=== PATIENT | female | born 1990 | race Caucasian/White ===

== ENCOUNTER 2019-08-30 00:20 | Inpatient (IN) | payer BC ==
[2019-08-30] MEDS ORDERED: Methylergonovine 0.2 MG/1 ML Amp IM PRN (01:54)
[2019-08-30] MEDS ORDERED: Sodium Chloride 0.9% 2.5 ML Syringe FLUSH PRN (01:54)
[2019-08-30] MEDS ORDERED: Carboprost Tromethamine 250 MCG/1 ML Amp IM PRN (01:54)
[2019-08-30] MEDS ORDERED: Tranexamic Acid 1,000 MG in Sodium Chloride 0.9% 100 ML IV PRN (01:54)
[2019-08-30] MEDS ORDERED: Butorphanol 1 MG/ML SDV IVPUSH PRN (01:54)
[2019-08-30] MEDS ORDERED: Misoprostol 200 MCG Tab PO PRN (01:54)
[2019-08-30] MEDS ORDERED: Sodium Chloride 0.9% 10 ML Syringe FLUSH PRN (01:54)
[2019-08-30] MEDS ORDERED: Lidocaine 1% 50 ML MDV INJECT PRN (01:54)
[2019-08-30] MEDS ORDERED: Terbutaline 1 MG/ML SDV SUBCUT PRN (01:54)
[2019-08-30] MEDS ORDERED: Water For Irrigation,Sterile 1,000 ML Container IRR PRN (01:54)
[2019-08-30] MEDS ORDERED: Sodium Chloride 0.9% 10 ML SDV IV PRN (01:54)
[2019-08-30] MEDS ORDERED: Oxytocin/0.9 % Sodium Chloride 30 UNIT/500 ML BAG IV SCH ×2 (02:00)
[2019-08-30] MEDS ORDERED: Misoprostol 25 MCG (1/4 of 100 MCG) Tab VAG PRN ×2 (02:30→06:30)
[2019-08-30] MEDS: Lactated Ringers 1,000 ML IV SCH ×3 (06:24→12:12)
--- NOTE | 2019-08-30 07:02 | PCM.PREANE ---
Preanesthetic Assessment - Anesthesia/Transfusion/Family Hx Anesthesia History: Prior Anesthesia Without Reaction Family History of Anesthesia Reaction: No Transfusion History: No Prior Transfusion(s) - Review of Systems General: No Symptoms Pulmonary: No Symptoms Cardiovascular: No Symptoms Gastrointestinal: No Symptoms Neurological: No Symptoms Other: Reports: None - Physical Assessment Height: 5 ft 8 in Weight: 73.482 kg ASA Class: 2 Mental Status: Alert & Oriented x3 Airway Class: Mallampati = 2 Dentition: Reports: Normal Dentition Thyro-Mental Finger Breadths: 3 Mouth Opening Finger Breadths: 3 ROM/Head Extension: Full Lungs: Clear to Auscultation, Normal Respiratory Effort Cardiovascular: Regular Rate, Regular Rhythm - Lab Values: Laboratory Last Values WBC 8.29 K/uL (4.0-11.0) 08/30/19 02:25 RBC 3.58 M/uL (4.30-5.90) L 08/30/19 02:25 Hgb 11.4 g/dL (12.0-16.0) L 08/30/19 02:25 Hct 34.7 % (36.0-46.0) L 08/30/19 02:25 MCV 96.9 fL (80.0-98.0) 08/30/19 02:25 MCH 31.8 pg (27.0-32.0) 08/30/19 02:25 MCHC 32.9 g/dL (31.0-37.0) 08/30/19 02:25 RDW Std Deviation 45.3 fl (28.0-62.0) 08/30/19 02:25 RDW Coeff of Ciaran 13 % (11.0-15.0) 08/30/19 02:25 Plt Count 126 K/uL (150-400) L 08/30/19 02:25 MPV 11.70 fL (7.40-12.00) 08/30/19 02:25 Nucleated RBC % 0.0 /100WBC 08/30/19 02:25 Nucleated RBCs # 0 K/uL 08/30/19 02:25 Blood Type A POSITIVE 08/30/19 02:25 Antibody Screen NEGATIVE 08/30/19 02:25 - Allergies Allergies/Adverse Reactions: Allergies Allergy/AdvReac Type Severity Reaction Status Date / Time No Known Allergies Allergy Verified 11/17/17 13:19 - Acknowledgements Anesthesia Type Planned: Epidural Pt an Appropriate Candidate for the Planned Anesthesia: Yes Alternatives and Risks of Anesthesia Discussed w Pt/Guardian: Yes Pt/Guardian Understands and Agrees with Anesthesia Plan: Yes PreAnesthesia Questionnaire HEENT History: Reports: Other (See Below) (Glasses) Cardiovascular History: Reports: None Respiratory History: Reports: None Gastrointestinal History: Reports: GERD Genitourinary History: Reports: None 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 Para: 0 LMP (Approximate): Musculoskeletal History: Reports: None Neurological History: Reports: None Psychiatric History: Reports: None Endocrine/Metabolic History: Reports: None Hematologic History: Reports: None Immunologic History: Reports: None Oncologic (Cancer) History: Reports: None Dermatologic History: Reports: None - Infectious Disease History Infectious Disease History: Reports: Herpes - HOME MEDS Home Medications: Home Meds Iron 1 tab PO DAILY 08/30/19 [History] Pnv No.95/Ferrous Fum/Folic AC [ Caplet] 1 each PO DAILY 08/30/19 [ History] - CURRENT (IN HOUSE) MEDS Current Meds: Current Medications Butorphanol Tartrate (Stadol) 1 mg IVPUSH Q1H PRN PRN Reason: Pain Last Admin: 08/30/19 06:20 Dose: 1 mg Carboprost Tromethamine (Hemabate Ds) 250 mcg IM ASDIRECTED PRN PRN Reason: Post Hemorrhage Lactated Ringer's (Ringers, Lactated) 1,000 mls @ 150 mls/hr IV ASDIRECTED KYLIE Last Admin: 08/30/19 06:24 Dose: 999 mls/hr Oxytocin/Sodium Chloride (Oxytocin 30 Unit/500 Ml-Ns) 30 unit in 500 mls @ 999 mls/hr IV TITRATE KYLIE Oxytocin/Sodium Chloride (Oxytocin 30 Unit/500 Ml-Ns) 30 unit in 500 mls @ 2 mls/hr IV TITRATE KYLIE; Protocol Tranexamic Acid 1,000 mg/ (Sodium Chloride) 110 mls @ 660 mls/hr IV ONETIME PRN PRN Reason: Bleeding Lidocaine HCl (Xylocaine 1%) 50 ml INJECT ONETIME PRN PRN Reason: Laceration repair Methylergonovine Maleate (Methergine) 0.2 mg IM ASDIRECTED PRN PRN Reason: Post Hemorrhage Misoprostol (Cytotec) 200 mcg PO ONETIME PRN PRN Reason: Post Hemorrhage Misoprostol (Cytotec) 25 mcg VAG ONETIME PRN PRN Reason: Cervical Ripening Last Admin: 08/30/19 02:38 Dose: 25 mcg Misoprostol (Cytotec) 25 mcg VAG Q4H PRN PRN Reason: Cervical Ripening Sodium Chloride (Saline Flush) 10 ml FLUSH ASDIRECTED PRN PRN Reason: Keep Vein Open Sodium Chloride (Saline Flush) 2.5 ml FLUSH ASDIRECTED PRN PRN Reason: Keep Vein Open Sodium Chloride (Normal Saline) 10 ml IV ASDIRECTED PRN PRN Reason: IV Use Sterile Water (Sterile Water For Irrigation) 1,000 ml IRR ASDIRECTED PRN PRN Reason: delivery Terbutaline Sulfate (Brethine) 0.25 mg SUBCUT ASDIRECTED PRN PRN Reason: Tacysystole
[2019-08-30] MEDS ORDERED: Bupivicaine/fentaNYL/NS 250 ML ONE (07:23)
[2019-08-30] MEDS ORDERED: Bupivacaine 0.5% 10 ML SDV ONE ×2 (07:35→07:46)
[2019-08-30] MEDS ORDERED: Ondansetron 4 MG/2 ML SDV IVPUSH PRN (08:42)
[2019-08-30] MEDS ORDERED: Lanolin 100% Cream 7 GM Tube TOP PRN (13:28)
[2019-08-30] MEDS ORDERED: Acetaminophen 500 MG Tab PO PRN ×2 (13:28)
[2019-08-30] MEDS ORDERED: Aluminum Hydroxide/Magnesium Hydroxide/Simethicone Susp 30 ML Cup PO PRN (13:28)
[2019-08-30] MEDS ORDERED: Ibuprofen 400 MG Tab PO PRN (13:28)
[2019-08-30] MEDS ORDERED: Ibuprofen 800 MG Tab PO PRN (13:28)
[2019-08-30] MEDS ORDERED: oxyCODONE 5 MG Tab PO PRN (13:28)
[2019-08-30] MEDS ORDERED: Docusate Sodium 100 MG Cap PO PRN (13:28)
[2019-08-30] MEDS ORDERED: Witch Hazel Medicated Pads 40/Jar TOP PRN (13:28)
[2019-08-30] MEDS ORDERED: Bisacodyl 10 MG Supp RECTAL PRN (13:28)
[2019-08-30] MEDS ORDERED: Hydrocortisone 2.5% Crm 30 GM Tube TOP PRN (13:28)
[2019-08-30] MEDS ORDERED: Benzocaine/Menthol 20%-0.5% Spray 78 GM Cannister TOP PRN (13:28)
--- NOTE | 2019-08-30 13:36 | PCM.OPNOTE ---
- General Post-Op/Procedure Note Date of Surgery/Procedure: 08/30/19 Operative Procedure(s): /2nd mLL repaired, right sulcus laceration repaired Findings: Viable female APGARs 9, 9 weight 7 lb 6 oz Spontaneous delivery intact placenta with a 3 V cord Pre Op Diagnosis: 40/1 week IUP. Induction of labor for past due Post-Op Diagnosis: Same Anesthesia Technique: Epidural Primary Surgeon: Renee Zavala EBL in mLs: 350 Complications: none known Condition: Good Free Text/Narrative:: Dictation [id number]
--- NOTE | 2019-08-30 15:24 | OR ---
SURGEON: Renee Zavala M.D. DATE OF PROCEDURE: 08/30/2019 PREOPERATIVE DIAGNOSIS: A 40-1/7 weeks' intrauterine , induction of labor due to past due . POSTOPERATIVE DIAGNOSIS: A 40-1/7 weeks' intrauterine , induction of labor due to past due . PROCEDURE: Spontaneous vaginal delivery with second-degree midline laceration and right lateral sulcus repaired. PRIMARY SURGEON: Renee Zavala MD ANESTHESIA: Epidural. ESTIMATED BLOOD LOSS: 350 mL. COMPLICATIONS: None known. FINDINGS: Viable female. scores 9 at one minute and 9 at five minutes. Weight of 7 pounds 6 ounces. Spontaneous delivery, intact placenta, 3-vessel cord. DISPOSITION: to nursery, mom in LDRP. PROCEDURE DETAILS: Ciera is a 29-year-old, G1, P0, at 40-1/7 weeks' gestational age who presents for scheduled induction of labor due to past due . Risks of procedure have been discussed. Proper consent obtained. The patient was admitted, routine labs were drawn. IV hydration was initiated. She underwent Cytotec ripening, responded nicely to this. Became increasingly uncomfortable, underwent regional anesthesia in the form of epidural. The following morning at approximately 9 a.m., she was found to be 8 cm. Group B beta strep negative. Therefore, amniotomy was performed. She was on Pitocin. Over the next 3 hours, she had progressed to complete, 100% effaced, +3 station. I was called for delivery. Upon my arrival, the patient was placed in modified dorsal lithotomy position, prepped and draped in the usual aseptic manner. Continued with pushing efforts, was able to push readily to a +4 station. Delivered 's head atraumatically spontaneously, followed by anterior shoulder, posterior shoulder, and remainder of the body without difficulty. The infant's oropharynx and nares were bulb suctioned. was handed off to her mother with attending nursing staff at the side. After a delay, the cord was clamped and cut. Cord arterial, cord venous, cord blood sampling obtained. Light pressure was applied while the placenta was delivered. Vigorous fundal uterine massage was applied while 30 units of Pitocin was delivered in 500 mL of IV fluid. Upon inspection of cervix, vaginal sidewall, and perineum, there was found to be a second-degree midline laceration. This was repaired using 3-0 Vicryl in the usual fashion. There was also a right lateral sulcus laceration. This was repaired using 3-0 Vicryl as well in continuous running locked fashion. The patient tolerated this repair well. Hemostasis appeared evident. Uterus remained firm. Sponge count, instrument count, and needle count were correct. The patient remained in LDRP, to nursery. CLYDE / BEN /[id number] ABDON
--- NOTE | 2019-08-31 10:27 | PCM.PNPP ---
- General Info Date of Service: 08/31/19 Functional Status: Reports: Pain Controlled, Tolerating Diet, Urinating, Other - Review of Systems General: Reports: No Symptoms Pulmonary: Denies: Shortness of Breath Cardiovascular: Denies: Chest Pain, Palpitations, Lightheadedness Gastrointestinal: Denies: Abdominal Pain, Nausea, Vomiting Genitourinary: Denies: Flank Pain Musculoskeletal: Reports: No Symptoms Skin: Reports: No Symptoms Neurological: Reports: No Symptoms Psychiatric: Reports: No Symptoms - General Info Date of Service: 08/31/19 - Patient Data Vital Signs - Most Recent: Last Vital Signs Temp 36.3 C 08/31/19 07:43 Pulse 89 08/31/19 07:43 Resp 18 08/31/19 07:43 BP 124/60 08/31/19 07:43 Pulse Ox 96 08/31/19 07:43 Weight - Most Recent: 73.482 kg Lab Results - Last 24 Hours: Laboratory Results - last 24 hr 08/30/19 08/30/19 08/31/19 Range/Units 12:25 12:25 05:37 Hgb 9.1 L (12.0-16.0) g/dL Hct 27.9 L (36.0-46.0) % Cord ABG pH 7.229 (7.18-7.38) Cord ABG Base Excess -5 (-10--2) Cord VBG pH 7.341 (7.25-7.45) Cord VBG Base Excess -5 (-10--2) Med Orders - Current: Current Medications Acetaminophen (Tylenol Extra Strength) 500 mg PO Q4H PRN PRN Reason: Pain Acetaminophen (Tylenol Extra Strength) 1,000 mg PO Q4H PRN PRN Reason: Pain Al Hydroxide/Mg Hydroxide (Mag-Al Plus) 30 ml PO Q8H PRN PRN Reason: Heartburn Benzocaine/Menthol (Dermoplast Pain Relief 20%-0.5% Meraux) 78 gm TOP ASDIRECTED PRN PRN Reason: Perineal Comfort Measure Last Admin: 08/30/19 17:21 Dose: 1 can Bisacodyl (Dulcolax) 10 mg RECTAL ONETIME PRN PRN Reason: Constipation Carboprost Tromethamine (Hemabate Ds) 250 mcg IM ASDIRECTED PRN PRN Reason: Post Hemorrhage Docusate Sodium (Colace) 100 mg PO BID PRN PRN Reason: Constipation Last Admin: 08/30/19 22:31 Dose: 100 mg Emollient Ointment (Lansinoh Hpa) 0 gm TOP ASDIRECTED PRN PRN Reason: Sore Nipples Hydrocortisone (Proctozone-Hc 2.5% Crm) 1 gm TOP 5XDAY PRN PRN Reason: Itching Lactated Ringer's (Ringers, Lactated) 1,000 mls @ 150 mls/hr IV ASDIRECTED KYLIE Last Admin: 08/30/19 12:12 Dose: 150 mls/hr Oxytocin/Sodium Chloride (Oxytocin 30 Unit/500 Ml-Ns) 30 unit in 500 mls @ 999 mls/hr IV TITRATE [facility] Last Admin: 08/30/19 12:26 Dose: 999 mls/hr Oxytocin/Sodium Chloride (Oxytocin 30 Unit/500 Ml-Ns) 30 unit in 500 mls @ 2 mls/hr IV TITRATE [facility]; Protocol Tranexamic Acid 1,000 mg/ (Sodium Chloride) 110 mls @ 660 mls/hr IV ONETIME PRN PRN Reason: Bleeding Ibuprofen (Motrin) 400 mg PO Q4H PRN PRN Reason: Pain Ibuprofen (Motrin) 800 mg PO Q6H PRN PRN Reason: Pain Methylergonovine Maleate (Methergine) 0.2 mg IM ASDIRECTED PRN PRN Reason: Post Hemorrhage Ondansetron HCl (Zofran) 4 mg IVPUSH Q6H PRN PRN Reason: Nausea/Vomiting Last Admin: 08/30/19 08:51 Dose: 4 mg Oxycodone HCl (Oxycodone) 5 mg PO Q2H PRN PRN Reason: Pain Sodium Chloride (Saline Flush) 10 ml FLUSH ASDIRECTED PRN PRN Reason: Keep Vein Open Sodium Chloride (Saline Flush) 2.5 ml FLUSH ASDIRECTED PRN PRN Reason: Keep Vein Open Sodium Chloride (Normal Saline) 10 ml IV ASDIRECTED PRN PRN Reason: IV Use Sterile Water (Sterile Water For Irrigation) 1,000 ml IRR ASDIRECTED PRN PRN Reason: delivery Last Admin: 08/30/19 12:26 Dose: 1,000 ml Witch Hanh (Tucks) 1 pad TOP ASDIRECTED PRN PRN Reason: comfort care Last Admin: 08/30/19 17:20 Dose: 1 tub Discontinued Medications Bupivacaine HCl (Sensorcaine-Mpf 0.5%) Confirm Administered Dose 10 ml .ROUTE .STK-MED ONE Stop: 08/30/19 07:36 Last Admin: 08/30/19 08:44 Dose: Not Given Bupivacaine HCl (Sensorcaine-Mpf 0.5%) Confirm Administered Dose 10 ml .ROUTE .STK-MED ONE Stop: 08/30/19 07:47 Last Admin: 08/30/19 08:44 Dose: Not Given Butorphanol Tartrate (Stadol) 1 mg IVPUSH Q1H PRN PRN Reason: Pain Last Admin: 08/30/19 06:20 Dose: 1 mg Fentanyl/Bupivacaine HCl (Fentanyl/Bupivacaine/Ns 2 Mcg-0.125% 250 Ml) Confirm Administered Dose 250 mls @ as directed .ROUTE .STK-MED ONE Stop: 08/30/19 07:24 Last Admin: 08/30/19 08:44 Dose: Not Given Lidocaine HCl (Xylocaine 1%) 50 ml INJECT ONETIME PRN PRN Reason: Laceration repair Misoprostol (Cytotec) 200 mcg PO ONETIME PRN PRN Reason: Post Hemorrhage Misoprostol (Cytotec) 25 mcg VAG ONETIME PRN PRN Reason: Cervical Ripening Last Admin: 08/30/19 02:38 Dose: 25 mcg Misoprostol (Cytotec) 25 mcg VAG Q4H PRN PRN Reason: Cervical Ripening Terbutaline Sulfate (Brethine) 0.25 mg SUBCUT ASDIRECTED PRN PRN Reason: Tacysystole - Infant Interaction Support Person: - Recovery Exam Fundal Tone: Firm Fundal Level: At Umbilicus Fundal Placement: Midline Lochia Amount: Scant Lochia Color: Rubra/Red Perineum Description: Other (see below) Other Perinuem Description: 2nd degree tear with repair Episiotomy/Laceration: Not Approximated Bladder Status: Voiding - Exam General: Alert, Oriented Lungs: Normal Respiratory Effort Cardiovascular: Regular Rate, Regular Rhythm GI/Abdominal Exam: Normal Bowel Sounds, Soft Extremities: Pedal Edema (trace). No: Ivy's Sign Skin: Warm, Dry, Intact Neurological: No New Focal Deficit Psy/Mental Status: Alert, Normal Affect, Normal Mood - Problem List & Annotations (1) Vaginal delivery SNOMED Code(s): 657053257 Code(s): O80 - ENCOUNTER FOR FULL-TERM UNCOMPLICATED DELIVERY Status: Acute Current Visit: Yes - Problem List Review Problem List Initiated/Reviewed/Updated: Yes - My Orders Last 24 Hours: My Active Orders 08/30/19 13:28 Patient Status [ADT] Routine May Shower [RC] ASDIRECTED Notify Provider Vital Signs [RC] ASDIRECTED Up ad Love [RC] ASDIRECTED Acetaminophen [Tylenol Extra Strength] 1,000 mg PO Q4H PRN Acetaminophen [Tylenol Extra Strength] 500 mg PO Q4H PRN Alum Hydrox/Mag Hydrox/Simeth [Mag-Al Plus] 30 ml PO Q8H PRN Benzocaine/Menthol [Dermoplast Pain Relief 20%-0.5% Meraux] 78 gm TOP ASDIRECTED PRN Docusate Sodium [Colace] 100 mg PO BID PRN Hydrocortisone [Proctozone-HC 2.5% Crm] 1 gm TOP 5XDAY PRN Ibuprofen [Motrin] 400 mg PO Q4H PRN Ibuprofen [Motrin] 800 mg PO Q6H PRN Lanolin [Lansinoh HPA] See Dose Instructions TOP ASDIRECTED PRN bisacodyL [Dulcolax] 10 mg RECTAL ONETIME PRN oxyCODONE 5 mg PO Q2H PRN witch Hanh [Tucks] 1 pad TOP ASDIRECTED PRN Assess Lochia [WOMSER] Per Unit Routine Assess Uterine Involution [WOMSER] Per Unit Routine Ice Therapy [OM.PC] Per Unit Routine Perineal Care [OM.PC] Per Unit Routine Peripheral IV Discontinue [OM.PC] Routine Sitz Bath [OM.PC] Per Unit Routine 08/30/19 Lunch Regular Diet [DIET] 08/31/19 10:24 Ready for Discharge [RC] PER UNIT ROUTINE - Assessment Assessment:: PPD 1 status post - Plan Plan:: Doing well overall. VS are stable. Would like to go home today. Discharge instructions reviewed. Follow up at [facility] 6 weeks. DIscharge to home.
--- NOTE | 2019-08-31 12:32 | PCM48HPAN ---
Post Anesthesia Note - EVALUATION WITHIN 48HRS OF ANESTHETIC Vital Signs in Normal Range: Yes Patient Participated in Evaluation: Yes Respiratory Function Stable: Yes Airway Patent: Yes Cardiovascular Function Stable: Yes Hydration Status Stable: Yes Pain Control Satisfactory: Yes Nausea and Vomiting Control Satisfactory: Yes Mental Status Recovered: Yes Vital Signs: Last Vital Signs Temp 36.3 C 08/31/19 07:43 Pulse 89 08/31/19 07:43 Resp 18 08/31/19 07:43 BP 124/60 08/31/19 07:43 Pulse Ox 96 08/31/19 07:43
== END 2019-08-31 14:35 | disposition home or self-care (01) | DRG 560 ==
LOC: MW.OBCHECK 00:20 → MW.OB 00:20 → MW.OBCHECK 01:55 → MW.OB 01:55 → OBSVTOIN 12:25 → MW.OB 17:30
PROVIDERS: ADMIT Obstetrics & Gynecology; ATTEND Obstetrics & Gynecology
PROC: 10E0XZZ Delivery of Products of Conception, External Approach (ICD-10-PCS; principal; 2019-08-30)
PROC: 10907ZC Drainage of Amniotic Fluid, Therapeutic from Products of Conception, Via Natural or Artificial Opening (ICD-10-PCS; 2019-08-30)
PROC: 3E0P7VZ Introduction of Hormone into Female Reproductive, Via Natural or Artificial Opening (ICD-10-PCS; 2019-08-30)
PROC: 3E0R3BZ Introduction of Anesthetic Agent into Spinal Canal, Percutaneous Approach (ICD-10-PCS; 2019-08-30)
PROC: 0KQM0ZZ Repair Perineum Muscle, Open Approach (ICD-10-PCS; 2019-08-30)
DX: O48.0 Post-term pregnancy (principal); Z3A.40 40 weeks gestation of pregnancy; Z37.0 Single live birth; Z79.899 Other long term (current) drug therapy; O70.1 Second degree perineal laceration during delivery
CPT/HCPCS: 36415; 51702; 59025; 59409; 82803; 85014; 85018; 85027; 86592; 86593; 86850; 86900; 86901; A9270-GY; J0595; J2405; J2590; J3010; J3490; J7120

== ENCOUNTER 2020-01-10 06:42 | Day surgery (SDC) | payer BC ==
[~2020-01-10 06:42] MED LIST: Lactated Ringers 1,000 ML IV SCH
[2020-01-10] MEDS ORDERED: fentaNYL 100 MCG/2 ML SDV ONE (06:55)
[2020-01-10] MEDS ORDERED: Lidocaine 2% 5 ML SDV ONE (06:55)
[2020-01-10] MEDS ORDERED: Propofol 200 MG/20 ML SDV ONE (06:55)
[2020-01-10] MEDS ORDERED: Midazolam 1 MG/ML 2 ML SDV ONE (06:56)
--- NOTE | 2020-01-10 07:14 | PCM.PREANE ---
Preanesthetic Assessment - Anesthesia/Transfusion/Family Hx Anesthesia History: No Prior Anesthesia Family History of Anesthesia Reaction: No Transfusion History: No Prior Transfusion(s) - Review of Systems General: No Symptoms Pulmonary: No Symptoms Cardiovascular: No Symptoms Gastrointestinal: No Symptoms Neurological: No Symptoms Other: Reports: None - Physical Assessment Vital Signs: Last Vital Signs Temp 97.3 F 01/10/20 07:11 Pulse 51 L 01/10/20 07:11 Resp 16 01/10/20 07:11 BP 111/64 01/10/20 07:11 Pulse Ox 98 01/10/20 07:11 Height: 5 ft 8.5 in Weight: 64.864 kg ASA Class: 1 Mental Status: Alert & Oriented x3 Airway Class: Mallampati = 2 Dentition: Reports: Normal Dentition Thyro-Mental Finger Breadths: 3 Mouth Opening Finger Breadths: 3 ROM/Head Extension: Full Lungs: Clear to Auscultation, Normal Respiratory Effort Cardiovascular: Regular Rate, Regular Rhythm - Lab Values: Laboratory Last Values WBC 4.95 K/uL (4.0-11.0) 01/09/20 11:32 RBC 4.14 M/uL (4.30-5.90) L 01/09/20 11:32 Hgb 12.4 g/dL (12.0-16.0) 01/09/20 11:32 Hct 38.2 % (36.0-46.0) 01/09/20 11:32 MCV 92.3 fL (80.0-98.0) 01/09/20 11:32 MCH 30.0 pg (27.0-32.0) 01/09/20 11:32 MCHC 32.5 g/dL (31.0-37.0) 01/09/20 11:32 RDW Std Deviation 39.4 fl (28.0-62.0) 01/09/20 11:32 RDW Coeff of Ciaran 12 % (11.0-15.0) 01/09/20 11:32 Plt Count 282 K/uL (150-400) 01/09/20 11:32 MPV 9.20 fL (7.40-12.00) 01/09/20 11:32 Nucleated RBC % 0.0 /100WBC 01/09/20 11:32 Nucleated RBCs # 0 K/uL 01/09/20 11:32 HCG, Qual NEGATIVE (NEG) 01/09/20 11:32 - Allergies Allergies/Adverse Reactions: Allergies Allergy/AdvReac Type Severity Reaction Status Date / Time No Known Allergies Allergy Verified 01/10/20 07:09 - Acknowledgements Anesthesia Type Planned: MAC Pt an Appropriate Candidate for the Planned Anesthesia: Yes Alternatives and Risks of Anesthesia Discussed w Pt/Guardian: Yes Pt/Guardian Understands and Agrees with Anesthesia Plan: Yes PreAnesthesia Questionnaire - Past Health History Medical/Surgical History: Denies Medical/Surgical History HEENT History: Reports: Other (See Below) Cardiovascular History: Reports: None Respiratory History: Reports: None Gastrointestinal History: Reports: GERD Genitourinary History: Reports: None 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: recently finished antibiotic for mastitis, currently breast feeding Musculoskeletal History: Reports: Back Pain, Chronic Other Musculoskeletal History: intermittent back pain Neurological History: Reports: None Psychiatric History: Reports: None Endocrine/Metabolic History: Reports: None Hematologic History: Reports: None Immunologic History: Reports: None Oncologic (Cancer) History: Reports: None Dermatologic History: Reports: None - Infectious Disease History Infectious Disease History: Reports: Herpes - Past Surgical History Head Surgeries/Procedures: Reports: None Female Surgical History: Endocrine Surgical History: Reports: None Neurological Surgical History: Reports: None Musculoskeletal Surgical History: Reports: Other (See Below) 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 Dermatological Surgical History: Reports: None - SUBSTANCE USE Smoking Status *Q: Never Smoker - HOME MEDS Home Medications: Home Meds . [No Known Home Meds] 01/04/20 [History] - CURRENT (IN HOUSE) MEDS Current Meds: Current Medications Lactated Ringer's (Ringers, Lactated) 1,000 mls @ 125 mls/hr IV ASDIRECTED KYLIE Last Admin: 01/10/20 07:09 Dose: 125 mls/hr Documented by: Discontinued Medications Fentanyl (Sublimaze) Confirm Administered Dose 100 mcg .ROUTE .STK-MED ONE Stop: 01/10/20 06:56 Lidocaine (Xylocaine-Mpf 2%) Confirm Administered Dose 5 ml .ROUTE .STK-MED ONE Stop: 01/10/20 06:56 Midazolam HCl (Versed 1 Mg/Ml) Confirm Administered Dose 2 mg .ROUTE .STK-MED ONE Stop: 01/10/20 06:57 Propofol (Diprivan 20 Ml) Confirm Administered Dose 400 mg .ROUTE .STK-MED ONE Stop: 01/10/20 06:56
[2020-01-10] MEDS ORDERED: Glycopyrrolate 0.2 MG/ML SDV ONE (07:52)
[2020-01-10] MEDS ORDERED: Atropine 0.1 MG/ML 10 ML Syringe IVPUSH PRN ×2 (08:24)
[2020-01-10] MEDS ORDERED: Albuterol 0.083% 2.5 MG/3 ML Neb Soln NEB PRN (08:24)
[2020-01-10] MEDS ORDERED: 50% Dextrose in Water 50 ML Syringe IVPUSH PRN (08:24)
[2020-01-10] MEDS ORDERED: Naloxone 0.4 MG/ML Syringe IVPUSH PRN (08:24)
[2020-01-10] MEDS ORDERED: fentaNYL 100 MCG/2 ML SDV IVPUSH PRN (08:24)
[2020-01-10] MEDS ORDERED: EPINEPHrine 1:10,000 1 MG/10 ML Syringe IVPUSH PRN (08:24)
--- NOTE | 2020-01-10 08:31 | PCM.OPNOTE ---
- General Post-Op/Procedure Note Date of Surgery/Procedure: 01/10/20 Operative Procedure(s): LEEP of cervix Findings: BRIAN III--biopsy proven Pre Op Diagnosis: BRIAN III Post-Op Diagnosis: Same Anesthesia Technique: Local, MAC Primary Surgeon: Renee Zavala Cavity Pump Operator: Arti Cain (MS IV) Fluid Replacement, Intraop: 1,000 EBL in mLs: 20 Complications: none known Condition: Stable Free Text/Narrative:: Dictation [id number]
--- NOTE | 2020-01-10 08:40 | PCM.POSTAN ---
POST ANESTHESIA ASSESSMENT - MENTAL STATUS Mental Status: Alert, Oriented - VITAL SIGNS Vital Signs: Last Vital Signs Temp 97.3 F 01/10/20 07:11 Pulse 72 01/10/20 08:37 Resp 9 L 01/10/20 08:37 BP 92/46 L 01/10/20 08:37 Pulse Ox 97 01/10/20 08:37 - RESPIRATORY Respiratory Status: Respiratory Rate WNL, Airway Patent, O2 Saturation Stable - CARDIOVASCULAR CV Status: Pulse Rate WNL, Blood Pressure Stable - GASTROINTESTINAL GI Status: No Symptoms - PAIN Pain Score: 0 - POST OP HYDRATION Hydration Status: Adequate & Stable
--- NOTE | 2020-01-10 10:57 | PCM48HPAN ---
Post Anesthesia Note - EVALUATION WITHIN 48HRS OF ANESTHETIC Vital Signs in Normal Range: Yes Patient Participated in Evaluation: Yes Respiratory Function Stable: Yes Airway Patent: Yes Cardiovascular Function Stable: Yes Hydration Status Stable: Yes Pain Control Satisfactory: Yes Nausea and Vomiting Control Satisfactory: Yes Mental Status Recovered: Yes Vital Signs: Last Vital Signs Temp 96.6 F L 01/10/20 08:45 Pulse 51 L 01/10/20 09:30 Resp 15 01/10/20 09:30 BP 107/66 01/10/20 09:30 Pulse Ox 99 01/10/20 09:30 - COMMENTS/OBSERVATIONS Free Text/Narrative:: discharged at 1005
--- NOTE | 2020-01-10 14:05 | OR ---
SURGEON: Renee Zavala M.D. DATE OF PROCEDURE: 01/10/2020 PREOPERATIVE DIAGNOSIS: Cervical intraepithelial neoplasia 3. POSTOPERATIVE DIAGNOSIS: Cervical intraepithelial neoplasia 3. PROCEDURE: Loop electrosurgical excision procedure of cervix. PRIMARY SURGEON: Renee Zavala M.D. WATER [employer] SUPERVISOR: BHUPENDRA Souza. ANESTHESIA: MAC with local. ESTIMATED BLOOD LOSS: 20 mL. FLUIDS: 1000 mL of crystalloid. DISPOSITION: The patient to PACU, stable. PROCEDURE IN DETAIL: Ciera is a 29-year-old G1, P1, who is approximately 3 months , who presents for a scheduled LEEP procedure given biopsy-proven BRIAN 3 on colposcopy. Risks of procedure were discussed and proper consent obtained. The patient was taken to the operating room, where she underwent MAC anesthetic, was placed in modified dorsal lithotomy position, was prepped and draped under usual aseptic technique. A time-out was performed. A speculum was introduced in the vagina as well as sidewall retractors. A cervical block was performed using 1% lidocaine with epinephrine. Please see nurse's notes for total amount dispensed of local. Using a 20 x 8 mm loop, the posterior lip was now excised followed by anterior lip, and a 5 mm endocervical hat. Endocervical curettings were also obtained. The base of the wound bed was now cauterized as well as the peripheral edges. Monsel's was placed. The endocervical os was once again cannulized. Hemostasis appeared evident. All instruments were removed from the vagina. Sponge, instrument, and needle count was correct x2. The patient will go to PACU in stable condition. CLYDE / BEN /[id number]
== END 2020-01-10 10:07 | disposition home or self-care (01) ==
LOC: MW.SDS 06:42
PROVIDERS: ATTEND Obstetrics & Gynecology
DX: D06.0 Carcinoma in situ of endocervix (principal); K21.9 Gastro-esophageal reflux disease without esophagitis; Z79.899 Other long term (current) drug therapy
CPT/HCPCS: 36415; 57461; 84703; 85027; J2001; J2250; J2704; J3490; J7120; 00940; 88305; 88307; J3010

== ENCOUNTER 2022-01-30 04:53 | Inpatient (IN) | payer BC ==
[2022-01-30] MEDS ORDERED: Carboprost Tromethamine 250 MCG/1 ML Amp IM PRN (04:59)
[2022-01-30] MEDS ORDERED: Sodium Chloride 0.9% 10 ML Syringe FLUSH PRN (04:59)
[2022-01-30] MEDS ORDERED: Sodium Chloride 0.9% 2.5 ML Syringe FLUSH PRN (04:59)
[2022-01-30] MEDS ORDERED: Lidocaine 1% 50 ML MDV INJECT PRN (04:59)
[2022-01-30] MEDS ORDERED: Tranexamic Acid 1,000 MG in Sodium Chloride 0.9% 100 ML IV PRN (04:59)
[2022-01-30] MEDS ORDERED: Sodium Chloride 0.9% 20 ML SDV IV PRN (04:59)
[2022-01-30] MEDS ORDERED: Ondansetron 4 MG/2 ML SDV IVPUSH PRN (04:59)
[2022-01-30] MEDS ORDERED: Water For Irrigation,Sterile 1,000 ML Container IRR PRN (04:59)
[2022-01-30] MEDS ORDERED: Methylergonovine 0.2 MG/1 ML Amp IM PRN (04:59)
[2022-01-30] MEDS ORDERED: Terbutaline 1 MG/ML SDV SUBCUT PRN (04:59)
[2022-01-30] MEDS ORDERED: Misoprostol 200 MCG Tab PO PRN (04:59)
[2022-01-30] MEDS ORDERED: Butorphanol 1 MG/ML SDV IVPUSH PRN (04:59)
[2022-01-30] MEDS ORDERED: Oxytocin/0.9 % Sodium Chloride 30 UNIT/500 ML BAG IV SCH ×2 (05:00)
[2022-01-30] MEDS: Lactated Ringers 1,000 ML IV SCH ×2 (06:22→11:54)
[2022-01-30] MEDS ORDERED: Ropivacaine/PF 400 MG/200 ML PCA ONE (11:52)
[2022-01-30] MEDS ORDERED: ePHEDrine 50 MG/ML SDV IVPUSH PRN ×2 (12:49)
[2022-01-30] MEDS ORDERED: Ropivacaine HCl/PF 400 MG in Premix Bag 1 BAG EPIDUR SCH (13:00)
[2022-01-30] MEDS ORDERED: Phenylephrine HCl In 0.9% NaCl 1 MG/10 ML Vial IVPUSH SCH (13:00)
[2022-01-30] MEDS ORDERED: Ibuprofen 400 MG Tab PO PRN (14:35)
[2022-01-30] MEDS ORDERED: Lanolin 100% Cream 7 GM Tube TOP PRN (14:35)
[2022-01-30] MEDS ORDERED: oxyCODONE 5 MG Tab PO PRN (14:35)
[2022-01-30] MEDS ORDERED: Acetaminophen 500 MG Tab PO PRN ×2 (14:35)
[2022-01-30] MEDS ORDERED: Ibuprofen 800 MG Tab PO PRN (14:35)
[2022-01-30] MEDS ORDERED: Bisacodyl 10 MG Supp RECTAL PRN (14:35)
[2022-01-30] MEDS ORDERED: Benzocaine/Menthol 20%-0.5% Spray 78 GM Cannister TOP PRN (14:35)
[2022-01-30] MEDS ORDERED: Witch Hazel Medicated Pads 40/Jar TOP PRN (14:35)
[2022-01-30] MEDS ORDERED: Bupivacaine 0.25% 10 ML SDV ONE (15:45)
[2022-01-30] MEDS: Docusate Sodium 100 MG Cap PO PRN (21:21)
[2022-01-31] MEDS: Docusate Sodium 100 MG Cap PO PRN (08:32)
== END 2022-01-31 16:43 | disposition home or self-care (01) | DRG 560 ==
LOC: MW.OBCHECK 04:53 → MW.OB 05:39 → OBSVTOIN 14:08 → MW.OB 18:21
PROVIDERS: ADMIT Obstetrics & Gynecology; ATTEND Obstetrics & Gynecology
PROC: 10E0XZZ Delivery of Products of Conception, External Approach (ICD-10-PCS; principal; 2022-01-30)
PROC: 10907ZC Drainage of Amniotic Fluid, Therapeutic from Products of Conception, Via Natural or Artificial Opening (ICD-10-PCS; 2022-01-30)
PROC: 3E0R3BZ Introduction of Anesthetic Agent into Spinal Canal, Percutaneous Approach (ICD-10-PCS; 2022-01-30)
PROC: 00HU33Z Insertion of Infusion Device into Spinal Canal, Percutaneous Approach (ICD-10-PCS; 2022-01-30)
DX: O69.81X0 Labor and delivery complicated by cord around neck, without compression, not applicable or unspecified (principal); Z37.0 Single live birth; Z3A.39 39 weeks gestation of pregnancy; Z20.822 Contact with and (suspected) exposure to COVID-19
CPT/HCPCS: 01967; 36415; 59025; 59409; 82803; 85014; 85018; 85027; 86592; 86850; 86900; 86901; A9270-GY; J2590; J2795; J3490; J7120; U0002

== ENCOUNTER 2024-06-28 14:54 | Observation (INO) | payer SELFPAY ==
[2024-06-28] MEDS ORDERED: Sodium Chloride 0.9% 10 ML Syringe FLUSH PRN (15:02)
[2024-06-28] MEDS ORDERED: Sodium Chloride 0.9% 20 ML SDV IV PRN (15:02)
[2024-06-28] MEDS ORDERED: Sodium Chloride 0.9% 2.5 ML Syringe FLUSH PRN (15:02)
[2024-06-28] MEDS: Lactated Ringers 1,000 ML IV ONE (15:20)
[2024-06-28 15:47] LABS: BASOPHILS ABSOLUTE AUTO 0.02 K/uL (0.00-0.20); BASOPHILS PERCENT AUTO 0.4 % (0.0-1.0); EOSINOPHILS ABSOLUTE AUTO 0.01 K/uL (0.00-0.45); EOSINOPHILS PERCENT AUTO 0.2 % (0.0-6.0); HEMATOCRIT 30.9 % (37.0-47.0); HEMOGLOBIN 10.5 g/dL (12.0-16.0); IMMATURE GRAN ABSOLUTE AUTO 0.04 K/uL (0.00-0.05); IMMATURE GRAN PERCENT AUTO 0.8 % (0.0-0.4); LYMPHOCYTES ABSOLUTE AUTO 0.69 K/uL (1.00-4.80); LYMPHOCYTES PERCENT AUTO 13.2 % (24.0-44.0); MEAN CORPUSCULAR HEMOGLOBIN 32.3 pg (28.0-32.0); MEAN CORPUSCULAR VOLUME 95.1 fL (83.0-99.0); MEAN PLATELET VOLUME 9.9 fL (9.4-12.3); MONOCYTES ABSOLUTE AUTO 0.32 K/uL (0.00-0.80); MONOCYTES PERCENT AUTO 6.1 % (0.0-8.0); NEUTROPHILS ABSOLUTE AUTO 4.13 K/uL (1.80-7.70); NEUTROPHILS PERCENT AUTO 79.3 % (41.0-71.0); PLATELET COUNT,PLT 152 K/uL (150-400); RED BLOOD CELL COUNT 3.25 M/uL (4.10-5.30); WHITE BLOOD CELL COUNT,WBC 5.21 K/uL (3.9-11.3)
[2024-06-28] MEDS: Acetaminophen 1,000 MG in Premix Bag 1 BAG IV ONE (15:50)
[2024-06-28 16:15] LABS: A/G RATIO 0.7 (0.9-1.6); ALBUMIN 3.1 g/dL (3.4-5.0); BILIRUBIN TOTAL 0.4 mg/dL (0.2-1.0); CALCIUM 8.6 mg/dL (8.5-10.1); CARBON DIOXIDE,CO2 22.9 mmol/L (21.0-32.0); CREATININE 0.8 mg/dL (0.6-1.0); EST CRCL DRUG DOSING (CG) 99.95 mL/min; POTASSIUM,K 3.3 mmol/L (3.5-5.1); PROTEIN TOTAL,TP 7.3 g/dL (6.4-8.2)
[2024-06-28 16:34] LABS: CORONAVIRUS COVID-19 NAA NEGATIVE (NEGATIVE); INFLUENZA A NAA POSITIVE (NEGATIVE); INFLUENZA B NAA NEGATIVE (NEGATIVE); RESPIRATORY SYNCYTIAL VIR NAA NEGATIVE (NEGATIVE)
[2024-06-28] MEDS: Lactated Ringers 1,000 ML IV SCH (17:38)
[2024-06-28] MEDS: Oseltamivir 75 MG Cap PO ONE (17:39)
[2024-06-28] MEDS: Acetaminophen 500 MG Tab PO SCH (20:43)
[2024-06-29] MEDS: Oseltamivir 75 MG Cap PO SCH (09:21)
[2024-06-29] MEDS: guaiFENesin 600 MG Tab.ER PO SCH (11:51)
[2024-06-29] MEDS: Phenol 1.4% Oral Spray 177 ML Bottle MUCMEM PRN (11:52)
[2024-06-29 16:31] LABS: BASOPHILS ABSOLUTE AUTO 0.01 K/uL (0.00-0.20); BASOPHILS PERCENT AUTO 0.3 % (0.0-1.0); HEMATOCRIT 23.8 % (37.0-47.0); HEMOGLOBIN 8.3 g/dL (12.0-16.0); IMMATURE GRAN ABSOLUTE AUTO 0.03 K/uL (0.00-0.05); IMMATURE GRAN PERCENT AUTO 0.9 % (0.0-0.4); LYMPHOCYTES ABSOLUTE AUTO 0.84 K/uL (1.00-4.80); LYMPHOCYTES PERCENT AUTO 25.8 % (24.0-44.0); MEAN CORPUSCULAR HEMOGLOBIN 32.9 pg (28.0-32.0); MEAN CORPUSCULAR HGB CONC 34.9 g/dL (32.0-36.0); MEAN CORPUSCULAR VOLUME 94.4 fL (83.0-99.0); MEAN PLATELET VOLUME 9.9 fL (9.4-12.3); MONOCYTES ABSOLUTE AUTO 0.25 K/uL (0.00-0.80); MONOCYTES PERCENT AUTO 7.7 % (0.0-8.0); NEUTROPHILS ABSOLUTE AUTO 2.13 K/uL (1.80-7.70); NEUTROPHILS PERCENT AUTO 65.3 % (41.0-71.0); PLATELET COUNT,PLT 102 K/uL (150-400); RED BLOOD CELL COUNT 2.52 M/uL (4.10-5.30); WHITE BLOOD CELL COUNT,WBC 3.26 K/uL (3.9-11.3)
[2024-06-29 16:48] LABS: CARBON DIOXIDE,CO2 22.3 mmol/L (21.0-32.0); CREATININE 0.7 mg/dL (0.6-1.0); EST CRCL DRUG DOSING (CG) 114.23 mL/min; POTASSIUM,K 3.3 mmol/L (3.5-5.1)
[2024-06-29] MEDS: diphenhydrAMINE 50 MG Cap PO PRN (20:56)
[2024-06-29] MEDS: Dextrose 5%-0.9% NaCl with KCl 1,000 ML IV SCH (21:37)
[2024-06-30 05:45] LABS: BASOPHILS ABSOLUTE AUTO 0.01 K/uL (0.00-0.20); BASOPHILS PERCENT AUTO 0.4 % (0.0-1.0); EOSINOPHILS ABSOLUTE AUTO 0.01 K/uL (0.00-0.45); EOSINOPHILS PERCENT AUTO 0.4 % (0.0-6.0); HEMATOCRIT 25.5 % (37.0-47.0); HEMOGLOBIN 8.3 g/dL (12.0-16.0); IMMATURE GRAN ABSOLUTE AUTO 0.03 K/uL (0.00-0.05); IMMATURE GRAN PERCENT AUTO 1.1 % (0.0-0.4); MEAN CORPUSCULAR HEMOGLOBIN 31.8 pg (28.0-32.0); MEAN CORPUSCULAR HGB CONC 32.5 g/dL (32.0-36.0); MEAN CORPUSCULAR VOLUME 97.7 fL (83.0-99.0); MEAN PLATELET VOLUME 10.1 fL (9.4-12.3); MONOCYTES ABSOLUTE AUTO 0.22 K/uL (0.00-0.80); MONOCYTES PERCENT AUTO 7.8 % (0.0-8.0); NEUTROPHILS ABSOLUTE AUTO 1.45 K/uL (1.80-7.70); NEUTROPHILS PERCENT AUTO 51.3 % (41.0-71.0); PLATELET COUNT,PLT 110 K/uL (150-400); RED BLOOD CELL COUNT 2.61 M/uL (4.10-5.30); WHITE BLOOD CELL COUNT,WBC 2.82 K/uL (3.9-11.3)
[2024-06-30 06:12] LABS: CALCIUM 7.5 mg/dL (8.5-10.1); CARBON DIOXIDE,CO2 23.4 mmol/L (21.0-32.0); CREATININE 0.6 mg/dL (0.6-1.0); EST CRCL DRUG DOSING (CG) 133.27 mL/min; POTASSIUM,K 3.5 mmol/L (3.5-5.1)
== END 2024-06-30 10:50 | disposition home or self-care (01) ==
LOC: MW.OBCHECK 14:54 → MW.OB 14:54 → MW.OBCHECK 06-29 10:29 → MW.OB 06-29 10:29
PROVIDERS: ADMIT Obstetrics & Gynecology; ATTEND Obstetrics & Gynecology
DX: O98.513 Other viral diseases complicating pregnancy, third trimester (principal); J10.1 Influenza due to other identified influenza virus with other respiratory manifestations; O99.280 Endocrine, nutritional and metabolic diseases complicating pregnancy, unspecified trimester; Z3A.31 31 weeks gestation of pregnancy
CPT/HCPCS: 0241U; 36415; 59025; 80048; 80053; 83605; 85025; 87651; 96361; 96365; 96366; 96376; A9270; G0378; J0131; J7120; J3480

== ENCOUNTER 2024-08-20 07:34 | Inpatient (IN) | payer BC ==
[2024-08-20] MEDS ORDERED: Misoprostol 200 MCG Tab PO PRN (07:36)
[2024-08-20] MEDS ORDERED: Sodium Chloride 0.9% 20 ML SDV IV PRN (07:36)
[2024-08-20] MEDS ORDERED: Sodium Chloride 0.9% 10 ML Syringe FLUSH PRN (07:36)
[2024-08-20] MEDS ORDERED: Tranexamic Acid in NACL,ISO-OS 1,000 MG in Premix Bag 1 BAG IV PRN (07:36)
[2024-08-20] MEDS ORDERED: Methylergonovine 0.2 MG/1 ML Amp IM PRN (07:36)
[2024-08-20] MEDS ORDERED: Carboprost Tromethamine 250 MCG/1 mL Vial IM PRN (07:36)
[2024-08-20] MEDS ORDERED: Water For Irrigation,Sterile 1,000 ML Container IRR PRN (07:36)
[2024-08-20] MEDS ORDERED: Sodium Chloride 0.9% 2.5 ML Syringe FLUSH PRN (07:36)
[2024-08-20] MEDS ORDERED: Butorphanol 2 MG/ML SDV IVPUSH PRN (07:36)
[2024-08-20] MEDS ORDERED: Misoprostol 200 MCG Tab RECTAL PRN (07:36)
[2024-08-20] MEDS ORDERED: Lidocaine 1% 50 ML MDV INJECT PRN (07:36)
[2024-08-20] MEDS ORDERED: Oxytocin/0.9 % Sodium Chloride 30 UNIT/500 ML BAG IV SCH (07:45)
[2024-08-20] MEDS ORDERED: Ampicillin 2 GM Vial ONE (07:45)
[2024-08-20] MEDS ORDERED: Premix Bag 1 BAG ONE ×2 (07:47)
[2024-08-20] MEDS ORDERED: ePHEDrine 50 MG/ML SDV IVPUSH PRN (07:59)
[2024-08-20] MEDS ORDERED: dexmedeTOMIDine HCl 200 MCG/2 ML SDV EPIDUR SCH (08:00)
[2024-08-20] MEDS ORDERED: Lidocaine 1% 2 ML ONE (08:01)
[2024-08-20] MEDS ORDERED: Bupivacaine 0.5% 10 ML SDV ONE (08:01)
[2024-08-20] MEDS: Ampicillin 2 GM in Sodium Chloride 0.9% 100 ML IV ONE (08:15)
[2024-08-20] MEDS: Lactated Ringers 1,000 ML IV SCH (08:15)
[2024-08-20 08:24] LABS: HEMATOCRIT 35.1 % (37.0-47.0); HEMOGLOBIN 11.7 g/dL (12.0-16.0); MEAN CORPUSCULAR HEMOGLOBIN 31.4 pg (28.0-32.0); MEAN CORPUSCULAR HGB CONC 33.3 g/dL (32.0-36.0); MEAN CORPUSCULAR VOLUME 94.1 fL (83.0-99.0); MEAN PLATELET VOLUME 10.4 fL (9.4-12.3); PLATELET COUNT,PLT 151 K/uL (150-400); RED BLOOD CELL COUNT 3.73 M/uL (4.10-5.30); WHITE BLOOD CELL COUNT,WBC 13.16 K/uL (3.9-11.3)
[2024-08-20] MEDS: Ropivacaine HCl/PF 400 MG in Premix Bag 1 BAG EPIDUR SCH (10:18)
[2024-08-20] MEDS: Phenylephrine HCl In 0.9% NaCl 1 MG/10 ML Syringe IVPUSH PRN (10:32)
[2024-08-20] MEDS ORDERED: ePHEDrine 50 MG/ML SDV ONE (10:33)
[2024-08-20] MEDS: ePHEDrine 50 MG/ML SDV IM PRN (10:39)
[2024-08-20] MEDS ORDERED: Terbutaline 1 MG/ML SDV SUBCUT PRN (11:14)
[2024-08-20] MEDS: Ondansetron 4 MG/2 ML SDV IVPUSH PRN (11:39)
[2024-08-20] MEDS: Ampicillin 1 GM in Sodium Chloride 0.9% 50 ML IV SCH (12:03)
[2024-08-20] MEDS: Oxytocin/0.9 % Sodium Chloride 30 UNIT/500 ML BAG IV SCH (13:16)
[2024-08-20] MEDS ORDERED: Acetaminophen 500 MG Tab PO PRN (16:34)
[2024-08-20] MEDS ORDERED: Lanolin 100% Cream 7 GM Tube TOP PRN (16:34)
[2024-08-20] MEDS ORDERED: Ibuprofen 800 MG Tab PO PRN (16:34)
[2024-08-20] MEDS ORDERED: oxyCODONE 5 MG Tab PO PRN (16:34)
[2024-08-20] MEDS ORDERED: Docusate Sodium 100 MG Cap PO PRN (16:34)
[2024-08-20 17:16] LABS: PH,UMBILICAL ARTERIAL 7.268 (7.18-7.38); PH,UMBILICAL VENOUS 7.206 (7.25-7.45)
[2024-08-20] MEDS: Witch Hazel Medicated Pads 40/Jar TOP PRN (20:45)
[2024-08-20] MEDS: Benzocaine/Menthol 20%-0.5% Spray 78 GM Cannister TOP PRN (20:46)
[2024-08-21 07:17] LABS: HEMATOCRIT 27.8 % (37.0-47.0); HEMOGLOBIN 9.2 g/dL (12.0-16.0)
[2024-08-21] MEDS: Measles, Mumps & Rubella Vaccine 0.5 ML SDV SUBCUT ONE (17:29)
== END 2024-08-21 18:40 | disposition home or self-care (01) | DRG 560 ==
LOC: MW.OBCHECK 07:34 → MW.OB 07:35 → MW.OBCHECK 07:36 → MW.OB 07:36 → OBSVTOIN 16:36 → MW.OB 20:00
PROVIDERS: ADMIT Obstetrics & Gynecology Gynecology; ATTEND Obstetrics & Gynecology
PROC: 3E0234Z Introduction of Serum, Toxoid and Vaccine into Muscle, Percutaneous Approach (ICD-10-PCS; principal; 2024-08-20)
PROC: 3E0R3BZ Introduction of Anesthetic Agent into Spinal Canal, Percutaneous Approach (ICD-10-PCS; 2024-08-20)
PROC: 0HQ9XZZ Repair Perineum Skin, External Approach (ICD-10-PCS; 2024-08-20)
PROC: 10E0XZZ Delivery of Products of Conception, External Approach (ICD-10-PCS; 2024-08-20)
DX: O99.892 Other specified diseases and conditions complicating childbirth (principal); O90.81 Anemia of the puerperium; O70.0 First degree perineal laceration during delivery; Z3A.38 38 weeks gestation of pregnancy; Z37.0 Single live birth; Z23 Encounter for immunization; M43.27 Fusion of spine, lumbosacral region; Z98.890 Other specified postprocedural states; Z79.899 Other long term (current) drug therapy
CPT/HCPCS: 01967; 36415; 51702; 59025; 59409; 82803; 85014; 85018; 85027; 86592; 86850; 86900; 86901; 90707; A9270-GY; J0290; J0665; J2003; J2371; J2405; J2590; J2795; J3490; J7120

== ENCOUNTER 2025-01-03 06:52 | Day surgery (SDC) | payer BC ==
[2025-01-03] MEDS ORDERED: dexmedeTOMIDine HCl 200 MCG/2 ML SDV ONE (06:54)
[2025-01-03] MEDS ORDERED: propofoL 500 MG/50 ML 50 ML ONE ×2 (06:56→08:52)
[2025-01-03] MEDS ORDERED: Propofol 200 MG/20 ML SDV ONE (06:56)
[2025-01-03] MEDS ORDERED: fentaNYL 250 MCG/5 ML SDV ONE (06:57)
[2025-01-03] MEDS ORDERED: Albuterol 0.083% 2.5 MG/3 ML Neb Soln NEB PRN (07:00)
[2025-01-03] MEDS ORDERED: Naloxone 0.4 MG/ML SDV IVPUSH PRN (07:00)
[2025-01-03] MEDS ORDERED: Ondansetron 4 MG/2 ML SDV IVPUSH PRN (07:00)
[2025-01-03] MEDS ORDERED: fentaNYL 50 MCG/ML SDV IVPUSH PRN (07:00)
[2025-01-03] MEDS: Scopalamine 1mg/3day Transdermal Patch TOP ONE (07:17)
[2025-01-03] MEDS: Lactated Ringers 1,000 ML IV SCH (07:18)
[2025-01-03] MEDS ORDERED: Ropivacaine 0.5% 5 MG/ML 30 ML SDV ONE (07:21)
[2025-01-03] MEDS ORDERED: Lidocaine 2% 11 ML Jelly Filled Syringe ONE (07:59)
[2025-01-03] MEDS ORDERED: Ketamine HCL/NACL, ISO-OSM 50 MG/5 ML Syringe ONE (08:00)
[2025-01-03] MEDS ORDERED: Dexamethasone 4 MG/ML 5 ML MDV ONE (08:21)
[2025-01-03] MEDS ORDERED: Ondansetron 4 MG/2 ML SDV ONE ×2 (08:21→09:15)
[2025-01-03] MEDS ORDERED: Fluorescein 5 ML Vial ONE (08:56)
[2025-01-03] MEDS ORDERED: Ketorolac 30 MG/ML SDV ONE (09:15)
[2025-01-03] MEDS ORDERED: Promethazine 25 MG/ML SDV IM PRN (09:28)
[2025-01-03] MEDS: Ketorolac 30 MG/ML SDV IVPUSH SCH (10:44)
[2025-01-03] MEDS: Ondansetron 4 MG/2 ML SDV IVPUSH PRN (12:26)
[2025-01-03] MEDS: Acetaminophen/oxyCODONE 325-5 MG Tab PO PRN (16:04)
[2025-01-04 06:10] LABS: BASOPHILS ABSOLUTE AUTO 0.02 K/uL (0.00-0.20); BASOPHILS PERCENT AUTO 0.2 % (0.0-1.0); EOSINOPHILS ABSOLUTE AUTO 0.01 K/uL (0.00-0.45); EOSINOPHILS PERCENT AUTO 0.1 % (0.0-6.0); IMMATURE GRAN ABSOLUTE AUTO 0.02 K/uL (0.00-0.05); IMMATURE GRAN PERCENT AUTO 0.2 % (0.0-0.4); LYMPHOCYTES ABSOLUTE AUTO 3.34 K/uL (1.00-4.80); LYMPHOCYTES PERCENT AUTO 38.7 % (24.0-44.0); MEAN PLATELET VOLUME 9.6 fL (9.4-12.3); MONOCYTES ABSOLUTE AUTO 0.61 K/uL (0.00-0.80); MONOCYTES PERCENT AUTO 7.1 % (0.0-8.0); NEUTROPHILS ABSOLUTE AUTO 4.64 K/uL (1.80-7.70); NEUTROPHILS PERCENT AUTO 53.7 % (41.0-71.0); NRBC ABSOLUTE 0.00 K/uL (0.00-0.02); NRBC PERCENT 0.0 /100WBC (0.0-0.2); PLATELET COUNT,PLT 150 K/uL (150-400); RED BLOOD CELL COUNT 3.15 M/uL (4.10-5.30); WHITE BLOOD CELL COUNT,WBC 8.64 K/uL (3.9-11.3)
[2025-01-04 06:30] LABS: BLOOD UREA NITROGEN,BUN 15.0 mg/dL (7.0-18.0); CARBON DIOXIDE,CO2 29.0 mmol/L (21.0-32.0); CHLORIDE,CL 106.0 mmol/L (98-107); CREATININE 1.0 mg/dL (0.6-1.0); EST CRCL DRUG DOSING (CG) 79.21 mL/min; GLUCOSE RANDOM 91.0 mg/dL (74-106); POTASSIUM,K 4.1 mmol/L (3.5-5.1); SODIUM,NA 140.0 mmol/L (136-145)
[2025-01-04 06:32] LABS: ESTIMATED GFR 75.0 mL/min (>60)
[2025-01-04] MEDS: Acetaminophen/oxyCODONE 325-5 MG Tab PO PRN (11:33)
== END 2025-01-04 12:14 | disposition home or self-care (01) ==
LOC: MW.SDS 06:52 → MW.OB 10:36 → MW.SDS 01-04 12:14
PROVIDERS: ATTEND Obstetrics & Gynecology
DX: N72 Inflammatory disease of cervix uteri (principal); N87.1 Moderate cervical dysplasia
CPT/HCPCS: 36415; 58260; 80048; 85025; A9270; J0690; J1100; J1171; J1308; J1596; J1885; J2270; J2405; J2704; J2795; J3010; J7120; 00944; 64999; J2003; J3490